=== PATIENT | female | born 1995 ===

== ENCOUNTER 2017-02-26 14:42 | Emergency (ER) | payer OTHER ==
[2017-02-26 14:48] VITALS: BP 155/98; PULSE 101; RESP 16; TEMP 99; O2SAT 100
--- NOTE | 2017-02-26 15:08 | ED PDOC ---
Lower Extremity Pain/Injury Time Seen by Provider: 02/26/17 14:51 Chief Complaint (Nursing): Lower Extremity Problem/Injury Chief Complaint (Provider): Right Knee Pain History Per: Patient History/Exam Limitations: no limitations Onset/Duration Of Symptoms: Days (x1) Current Symptoms Are (Timing): Still Present Additional Complaint(s): Atilio Lang is a 22 year old female that presents to the ED with a chief complaint of right knee pain that she began yesterday. Patient states she was running when she stopped abruptly and felt pain to knee. Patient reports that she has difficulty bending her right knee, and that she used a topical cream in an attempt to manage her pain but this did not help. She rates current pain as 7/10. No oral meds taken for pain relief. Patient denies any numbness or tingling to affected area. PMD: Dr. Magnus Faulkner Past Medical History Reviewed: Historical Data, Nursing Documentation, Vital Signs Vital Signs: Last Vital Signs Temp 99 F 02/26/17 14:45 Pulse 101 H 02/26/17 14:45 Resp 16 02/26/17 14:45 BP 155/98 H 02/26/17 14:45 Pulse Ox 100 02/26/17 14:45 - Medical History PMH: Asthma - Surgical History Surgical History: No Surg Hx - Family History Family History: States: No Known Family Hx - Living Arrangements Living Arrangements: With Family - Social History Current smoker - smoking cessation education provided: No Alcohol: None Drugs: Denies - Home Medications Home Medications: Ambulatory Orders Medication Instructions Recorded Dicyclomine [Bentyl] 20 mg PO BID PRN #30 tab 08/08/16 Ondansetron [Zofran] 4 mg PO Q8H PRN #30 tab 08/08/16 Ibuprofen [Motrin] 600 mg PO Q6 PRN #20 tab 02/26/17 - Allergies Allergies/Adverse Reactions: Allergies Allergy/AdvReac Type Severity Reaction Status Date / Time shrimp Allergy Mild RASH Verified 08/08/16 17:05 Wells Criteria for PE - Wells Criteria for Pulmonary Embolism Clinical Signs and Symptoms of DVT: No P.E is #1 Diagnosis, or Equally Likely: No Heart Rate >100: No Immobilization at least 3 days;Surgery previous 4 weeks: No Previous, objectively diagnosed PE or DVT: No Hemoptysis: No Malignancy w/treatment within 6 months, or palliative: No Total Score: 0 Review of Systems ROS Statement: Except As Marked, All Systems Reviewed And Found Negative Musculoskeletal: Positive for: Leg Pain (right knee pain) Physical Exam - Reviewed Nursing Documentation Reviewed: Yes Vital Signs Reviewed: Yes - Physical Exam Appears: Positive for: Well, Non-toxic, No Acute Distress Skin: Positive for: Normal Color. Negative for: Rash Eye Exam: Positive for: Normal appearance Extremity: Positive for: Swelling (mild swelling to patella region of right leg) . Negative for: Normal ROM (decreased ROM right knee), Calf Tenderness, Deformity Neurologic/Psych: Positive for: Alert, Oriented. Negative for: Motor/Sensory Deficits - Laboratory Results Urine POC: Negative - ECG O2 Sat by Pulse Oximetry: 100 (RA) Pulse Ox Interpretation: Normal - Other Rad Right knee x-ray X-Ray: Interpreted by Me, Viewed By Me X-Ray Interpretation: no fx, no dis Medical Decision Making Medical Decision Making: Impression: Right Knee Pain Plan: * X-Ray Right Knee * Ibuprofen 600 mg PO * Urine * Reevaluation Patient states motrin helped the pain, she is aware of x-ray results, all questions answered. Patient given rx motrin and ortho referral. See procedure note. Crutches given. Scribe Attestation: Documented by Giulia Arredondo, acting as a scribe for Joanne Garcia PA-C. Provider Scribe Attestation: All medical record entries made by the Scribe were at my direction and personally dictated by me. I have reviewed the chart and agree that the record accurately reflects my personal performance of the history, physical exam, medical decision making, and the department course for this patient. I have also personally directed, reviewed, and agree with the discharge instructions and disposition. Procedures - Splinting Location: right knee Pre-Made Type: knee immobilizer Pre-Proc Neuro Vasc Exam: normal Post-Proc Neuro Vasc Exam: normal Disposition - Clinical Impression Clinical Impression: Knee sprain - Patient ED Disposition Is Patient to be Admitted: No Counseled Patient/Family Regarding: Studies Performed, Diagnosis, Need For Followup, Rx Given - Disposition Referrals: Magnus Faulkner DO [Non-Staff] - Janak Hoffman III, MD [Staff Provider] - Disposition: Routine/Home Disposition Time: 16:10 Condition: STABLE Additional Instructions: Ice, rest and elevate affected area. Take rx meds as directed as needed for pain. Follow up with primary care doctor or with orthopedist for any persistent symptoms. Prescriptions: Ibuprofen [Motrin] 600 mg PO Q6 PRN #20 tab PRN Reason: Pain, Moderate (4-7) Instructions: Knee Sprain (ED), Knee Immobilizer (ED), Crutch Instructions (ED) Forms: [email or web address] (Sinhala), [facility] ED School/Work Excuse
--- NOTE | 2017-02-26 16:08 | RAD ---
PROCEDURE: Right Knee Radiographs. HISTORY: trauma COMPARISON: None. FINDINGS: BONES: Normal. No fracture. JOINTS: Normal. No osteoarthritis. JOINT EFFUSION: None. OTHER FINDINGS: None. IMPRESSION: No acute findings related to/accounting for the clinical presentation. Concordant results with the preliminary interpretation rendered by the emergency department physician procedure.
== END 2017-02-26 16:33 | disposition home or self-care (01) ==
LOC: H.ER 14:42
DX: S83.91XA Sprain of unspecified site of right knee, initial encounter (principal); X50.9XXA Other and unspecified overexertion or strenuous movements or postures, initial encounter; Y92.89 Other specified places as the place of occurrence of the external cause

== ENCOUNTER 2018-07-19 05:12 | Observation (INO) | payer MEDICAID, OTHER ==
[2018-07-19 05:30] VITALS: BMI 22.1
[2018-07-19] MEDS ORDERED: Albuterol-Ipratrop 3 mg / 0.5 (3 ml) UD INH STA ×3 (05:30→05:31)
[2018-07-19] MEDS ORDERED: Albuterol-Ipratrop 3 mg / 0.5 (3 ml) UD ONE (05:36)
--- NOTE | 2018-07-19 05:43 | ED PDOC ---
HPI: SOB/CHF/COPD Time Seen by Provider: 07/19/18 05:26 Chief Complaint (Nursing): Shortness Of Breath Chief Complaint (Provider): Shortness of breath History Per: Patient History/Exam Limitations: no limitations Onset/Duration Of Symptoms: Hrs Current Symptoms Are (Timing): Still Present Additional Complaint(s): 23yo female, with history of asthma, comes to ER for acute asthma exacerbation, which was unresolved with albuterol at home. Patient's HPI is limited due to her clinical condition; patient is short of breath and unable to complete full sentences. No fever or recent illnesses and no prior intubations. PMD: Dr. Faulkner Past Medical History Reviewed: Historical Data, Nursing Documentation, Vital Signs Vital Signs: Last Vital Signs Temp 98.0 F 07/19/18 05:37 Pulse 116 H 07/19/18 05:37 Resp 20 07/19/18 05:37 BP 160/86 H 07/19/18 05:37 Pulse Ox 100 07/19/18 05:37 - Medical History PMH: Asthma - Surgical History Surgical History: No Surg Hx - Family History Family History: States: No Known Family Hx, Unknown Family Hx - Home Medications Home Medications: Ambulatory Orders Medication Instructions Recorded Dicyclomine [Bentyl] 20 mg PO BID PRN #30 tab 08/08/16 Ondansetron [Zofran] 4 mg PO Q8H PRN #30 tab 08/08/16 Ibuprofen [Motrin] 600 mg PO Q6 PRN #20 tab 02/26/17 - Allergies Allergies/Adverse Reactions: Allergies Allergy/AdvReac Type Severity Reaction Status Date / Time shrimp Allergy Mild RASH Verified 07/19/18 06:22 Review of Systems ROS Statement: Except As Marked, All Systems Reviewed And Found Negative Constitutional: Negative for: Fever Respiratory: Positive for: Shortness of Breath Physical Exam - Reviewed Nursing Documentation Reviewed: Yes Vital Signs Reviewed: Yes - Physical Exam Appears: Positive for: In Acute Distress (mild respiratory distress) Head Exam: Positive for: ATRAUMATIC, NORMAL INSPECTION, NORMOCEPHALIC Skin: Positive for: Normal Color Eye Exam: Positive for: Normal appearance Neck: Positive for: Normal, Supple Cardiovascular/Chest: Positive for: Tachycardia (regular rhythm) Respiratory: Positive for: Decreased Breath Sounds (decreased air entry bilaterally with minimal air sounds), Respiratory Distress (mild). Negative for: Rales, Rhonchi, Stridor, Wheezing Gastrointestinal/Abdominal: Positive for: Normal Exam, Soft Back: Positive for: Normal Inspection Extremity: Positive for: Normal ROM. Negative for: Pedal Edema, Calf Tenderness Neurologic/Psych: Positive for: Alert, Oriented. Negative for: Motor/Sensory Deficits - Laboratory Results Result Diagrams: 07/19/18 05:35 07/19/18 05:35 - ECG O2 Sat by Pulse Oximetry: 100 (RA) Pulse Ox Interpretation: Normal - Critical Care Total Time (In Min): 30 Documented Critical Care: Time excludes all time spent performint seperately billable procedures Medical Decision Making Medical Decision Making: Impression: Acute asthma exacerbation Plan: -- Duoneb 3ml INH x 3 -- Solumedrol 125mg IVP -- Chest x-ray -- Labs If symptoms do not improve, will give magnesium. Will consider admission if symptoms do not improve. 0629 On reassessment, patient with resolution of wheezing and has good air entry. She remains tachycardic at 143bpm. Will add troponin test, TSH, T3 and T4. IV Fluids, and IV magnesium ordered. 0700 Patient to be signed out to Dr. Bullard pending labs, reassessment. Scribe Attestation: Documented by Casandra Scott, acting as a scribe for Jennifer Nichols MD. Provider Scribe Attestation: All medical record entries made by the Scribe were at my direction and personally dictated by me. I have reviewed the chart and agree that the record accurately reflects my personal performance of the history, physical exam, medical decision making, and the department course for this patient. I have also personally directed, reviewed, and agree with the discharge instructions and disposition. Disposition - Patient ED Disposition Is Patient to be Admitted: Transfer of Care - Disposition Disposition: Transfer of Care Disposition Time: 07:00 Condition: STABLE Forms: [employer] (Filipino) Patient Signed Over To: Jayson Bullard
[2018-07-19 05:46] LABS: BASO # 0.1 K/uL (0.0-0.2); BASO % 0.4 % (0.0-2.0); EOS # 0.1 K/uL (0.0-0.7); EOS % 0.9 % (0.0-4.0); HEMOGLOBIN 12.5 g/dL (12.0-16.0); LYMPH # 2.7 K/uL (1.0-4.3); LYMPH % 19.1 % (20.0-40.0); MEAN CELL VOLUME 78.4 fl (81.0-99.0); MEAN CORPUSCULAR HEMOGLOBIN 25.4 pg (27.0-31.0); MEAN CORPUSCULAR HGB CONC 32.4 g/dL (33.0-37.0); MEAN PLATELET VOLUME 8.6 fl (7.2-11.7); MONO # 0.8 K/uL (0.0-0.8); MONO % 5.8 % (0.0-10.0); NEUT # 10.5 K/uL (1.8-7.0); NEUT % 73.8 % (50.0-75.0); RBC 4.94 Mil/uL (3.80-5.20); RED CELL DISTRIBUTION WIDTH 16.5 % (11.5-14.5); WHITE BLOOD COUNT 14.1 K/uL (4.8-10.8)
[2018-07-19 05:55] LABS: BLOOD UREA NITROGEN 10 mg/dl (7-17); CALCIUM 9.4 mg/dL (8.4-10.2); GFR NON-AFRICAN AMERICAN > 60
[2018-07-19] MEDS ORDERED: Sodium Chloride 0.9% 1,000 ML IV STA ×2 (06:33→09:29)
[2018-07-19] MEDS ORDERED: Magnesium Sulfate 2 gm/50 ml 2 GM/50 ML BAG IVPB ONE (06:34)
[2018-07-19] MEDS ORDERED: Magnesium Sulfate 2 gm/50 ml 2 GM/50 ML BAG ONE (06:40)
--- NOTE | 2018-07-19 07:07 | ED PDOC ---
- Laboratory Results Result Diagrams: 07/19/18 05:35 07/19/18 05:35 - ECG O2 Sat by Pulse Oximetry: 100 (RA) Pulse Ox Interpretation: Normal Medical Decision Making Medical Decision Makin Patient endorsed by Dr. Nichols, pending labs and reassessment. Scribe Attestation: Documented by Meagan Roe, acting as a scribe for Jayson Bullard MD. Persistent tachycardia despite improvement in resp status and adequate hydration. No risk factors for PE but should r/o, pt allergic to shellfish, will place in obs for persistent tachycardia and V/Q scan tomorrow. Discussed with hospitalist Dr. Nogueira. Provider Scribe Attestation: All medical record entries made by the Scribe were at my direction and personally dictated by me. I have reviewed the chart and agree that the record accurately reflects my personal performance of the history, physical exam, medical decision making, and the department course for this patient. I have also personally directed, reviewed, and agree with the discharge instructions and disposition. Disposition - Clinical Impression Clinical Impression: Tachycardia, Asthma - POA Present On Arrival: None - Disposition Disposition: Hospitalized as Observation Patient Disposition Time: 11:07 Condition: STABLE Forms: [employer] [facility] (Romansh)
[2018-07-19 07:29] LABS: TROPONIN I 0.013 ng/mL (0.00-0.120)
[2018-07-19 07:35] LABS: T4 6.63 ug/dl (5.5-11.0)
[2018-07-19 07:48] LABS: T3 1.25 nmol/L (1.49-2.60)
[2018-07-19] MEDS ORDERED: Albuterol-Ipratrop 3 mg / 0.5 (3 ml) UD INH PRN (11:38)
--- NOTE | 2018-07-19 11:48 | CP.PCM.HP ---
<Fernando Caballero - Last Filed: 07/19/18 12:13> History of Present Illness - History of Present Illness History of Present Illness: 23 y/o F with PMHx of asthma presents to ED with shortness of breath and palpitation that started yesterday. As per spouse he was spraying pesticides in the house when the symptoms started. Palpitation started first followed by shortness of breath. Symptoms progressively worsened and round 12-1 am in the morning her SOB worsened so patient decided to come to ED. Patient also reports associated mild headache and sharp midline upper back pain that started along with SOB and radiates to lower midline back. Denies any recent illness or travel. Patient denies any dizziness, watering of eye, runny nose, chest pain, abdominal pain, urinary symptoms, N/V/D/C. Appetite WNL. In ED patient received duoneb treatment which significantly improved dyspnea but palpitation and back pain persists. Asthma is well controlled with albuterol inhaler which she had to use once in past 1 year. PMD: Dr. 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 Present on Admission - Present on Admission Any Indicators Present on Admission: No History of DVT/PE: No History of Uncontrolled Diabetes: No Urinary Catheter: No Decubitus Ulcer Present: No Review of Systems - Review of Systems Systems not reviewed;Unavailable: Unstable Vital Signs, Respiratory Distress - Constitutional Constitutional: absent: Fatigue, Fever - EENT Eyes: absent: Change in Vision Nose/Mouth/Throat: absent: Nasal Congestion, Nasal Discharge - Cardiovascular Cardiovascular: Dyspnea, Palpitations. absent: Chest Pain, Chest Pain at Rest, Chest Pain with Activity, Pedal Edema - Respiratory Respiratory: Dyspnea. absent: Chest Congestion - Gastrointestinal Gastrointestinal: absent: Abdominal Pain, Constipation, Diarrhea, Nausea, Vomiting - Genitourinary Genitourinary: absent: Change in Urinary Stream, Difficulty Urinating, Dysuria - Reproductive: Female Reproductive:Female: Cycle >35 Days, Menses 1-7 Days - Musculoskeletal Musculoskeletal: Back Pain - Neurological Neurological: absent: Behavioral Changes - Psychiatric Psychiatric: absent: Anxiety Past Patient History - Infectious Disease Hx of Infectious Diseases: None - Past Social History Smoking Status: Never Smoked - PULMONARY Hx Asthma: Yes - PSYCHIATRIC Hx Substance Use: No - SURGICAL HISTORY Hx Surgeries: No - ANESTHESIA Hx Anesthesia: No Meds Allergies/Adverse Reactions: Allergies Allergy/AdvReac Type Severity Reaction Status Date / Time shrimp Allergy Mild RASH Verified 07/19/18 06:22 Physical Exam - Constitutional Appears: No Acute Distress - Head Exam Head Exam: ATRAUMATIC, NORMOCEPHALIC - Eye Exam Eye Exam: EOMI, Normal appearance - ENT Exam ENT Exam: Mucous Membranes Moist - Neck Exam Neck exam: Positive for: Full Rom. Negative for: Tenderness - Respiratory Exam Respiratory Exam: Clear to Auscultation Bilateral. absent: Rales, Rhonchi, Wheezes, Respiratory Distress - Cardiovascular Exam Cardiovascular Exam: Tachycardia, +S1, +S2 Additional comments: Sharp midline back pain which radiates to lower back. - GI/Abdominal Exam GI & Abdominal Exam: Normal Bowel Sounds, Soft. absent: Distended, Guarding, Tenderness - Extremities Exam Extremities exam: Negative for: calf tenderness, pedal edema, tenderness - Back Exam Back exam: absent: CVA tenderness (L), CVA tenderness (R) - Neurological Exam Neurological exam: Alert, Altered, Normal Gait, Oriented x3 - Psychiatric Exam Psychiatric exam: Normal Affect, Normal Mood - Skin Skin Exam: Dry, Intact, Normal Color, Warm Results - Vital Signs Recent Vital Signs: Last Vital Signs Temp 98.0 F 07/19/18 05:37 Pulse 116 H 07/19/18 05:37 Resp 20 07/19/18 06:18 BP 143/78 07/19/18 06:08 Pulse Ox 100 07/19/18 11:07 - Labs Result Diagrams: 07/19/18 05:35 07/19/18 05:35 Labs: Laboratory Results - last 24 hr 07/19/18 07/19/18 07/19/18 05:35 05:35 06:35 WBC 14.1 H D RBC 4.94 Hgb 12.5 Hct 38.7 MCV 78.4 L D MCH 25.4 L MCHC 32.4 L RDW 16.5 H Plt Count 325 MPV 8.6 Neut % (Auto) 73.8 Lymph % (Auto) 19.1 L [place] % (Auto) 5.8 Eos % (Auto) 0.9 Baso % (Auto) 0.4 Neut # (Auto) 10.5 H Lymph # (Auto) 2.7 Gaston # (Auto) 0.8 Eos # (Auto) 0.1 Baso # (Auto) 0.1 Sodium 141 Potassium 4.4 Chloride 104 Carbon Dioxide 26 Anion Gap 15 BUN 10 Creatinine 0.5 L Est GFR ( Amer) > 60 Est GFR (Non-Af Amer) > 60 Random Glucose 100 Calcium 9.4 Troponin I 0.0130 Thyroxine (T4) 6.63 Total T3 1.25 L TSH 3rd Generation 2.27 Assessment & Plan - Assessment and Plan (Free Text) Assessment: 23 y/o F with PMHx of asthma admitted for shortness of breath and palpitation x 1 day. Plan: Dyspnea/Acute asthma exacerbation, R/O PE - Admitted to telemetry - S/P Duoneb x 3, Solumedrol 125 mg, Mg Sulf 2 gm and IVF in ED - CXR: Awaiting official reports, No acute infiltrate per my interpretation - EKG: Sinus Tachycardia - Started on Duoneb Q4hr PRN - Solumedrol 40 mg Q12 - F/U V/Q scan, D-Dimer, TSH, ABG Tachycardia - Monitor on tele - F/U TSH, D-Dimer - Monitor vitals DVT prophylaxis - SCDs Diet : Regular <Nogueira,Abel D - Last Filed: 07/19/18 13:52> Results - Vital Signs Recent Vital Signs: Last Vital Signs Temp 98.0 F 07/19/18 05:37 Pulse 120 H 07/19/18 09:26 Resp 16 07/19/18 09:26 BP 141/76 07/19/18 09:26 Pulse Ox 100 07/19/18 11:07 - Labs Result Diagrams: 07/19/18 05:35 07/19/18 05:35 Labs: Laboratory Results - last 24 hr 07/19/18 07/19/18 07/19/18 05:35 05:35 06:35 WBC 14.1 H D RBC 4.94 Hgb 12.5 Hct 38.7 MCV 78.4 L D MCH 25.4 L MCHC 32.4 L RDW 16.5 H Plt Count 325 MPV 8.6 Neut % (Auto) 73.8 Lymph % (Auto) 19.1 L [place] % (Auto) 5.8 Eos % (Auto) 0.9 Baso % (Auto) 0.4 Neut # (Auto) 10.5 H Lymph # (Auto) 2.7 Gaston # (Auto) 0.8 Eos # (Auto) 0.1 Baso # (Auto) 0.1 D-Dimer, Quantitative pCO2 pO2 HCO3 ABG pH ABG Total CO2 ABG O2 Saturation ABG O2 Content ABG Base Excess ABG Hemoglobin ABG Carboxyhemoglobin POC ABG HHb (Measured) ABG Methemoglobin ABG O2 Capacity Demond Test A-a O2 Difference Hgb O2 Saturation FiO2 Sodium 141 Potassium 4.4 Chloride 104 Carbon Dioxide 26 Anion Gap 15 BUN 10 Creatinine 0.5 L Est GFR ( Amer) > 60 Est GFR (Non-Af Amer) > 60 Random Glucose 100 Calcium 9.4 Troponin I 0.0130 Thyroxine (T4) 6.63 Total T3 1.25 L TSH 3rd Generation 2.27 Urine Color Urine Clarity Urine pH Ur Specific [place] Urine Protein Urine Glucose (UA) Urine Ketones Urine Blood Urine Nitrate Urine Bilirubin Urine Urobilinogen Ur Leukocyte Esterase Urine RBC (Auto) Urine Microscopic WBC Ur Squamous Epith Cells Urine Bacteria 07/19/18 07/19/18 07/19/18 11:32 11:49 12:11 WBC RBC Hgb Hct MCV MCH MCHC RDW Plt Count MPV Neut % (Auto) Lymph % (Auto) [place] % (Auto) Eos % (Auto) Baso % (Auto) Neut # (Auto) Lymph # (Auto) [place] # (Auto) Eos # (Auto) Baso # (Auto) D-Dimer, Quantitative < 200 pCO2 34 L pO2 85 HCO3 18.4 L ABG pH 7.31 L ABG Total CO2 18.1 L ABG O2 Saturation 99.7 H ABG O2 Content 16.0 ABG Base Excess -8.3 L ABG Hemoglobin 12.0 ABG Carboxyhemoglobin 2.6 H POC ABG HHb (Measured) 0.3 ABG Methemoglobin 2.6 ABG O2 Capacity 16.0 Demond Test Yes A-a O2 Difference 22.0 Hgb O2 Saturation 94.6 L FiO2 21.0 Sodium Potassium Chloride Carbon Dioxide Anion Gap BUN Creatinine Est GFR ( Amer) Est GFR (Non-Af Amer) Random Glucose Calcium Troponin I Thyroxine (T4) Total T3 TSH 3rd Generation Urine Color Yellow Urine Clarity Cloudy Urine pH 5.0 Ur Specific [place] 1.019 Urine Protein Negative Urine Glucose (UA) Neg Urine Ketones Negative Urine Blood Small Urine Nitrate Negative Urine Bilirubin Negative Urine Urobilinogen 0.2-1.0 Ur Leukocyte Esterase Neg Urine RBC (Auto) 2 Urine Microscopic WBC 2 Ur Squamous Epith Cells 9 H Urine Bacteria Rare Attending/Attestation - Attestation I have personally seen and examined this patient.: Yes I have fully participated in the care of the patient.: Yes I have reviewed all pertinent clinical information: Yes Notes (Text): 07/19/18 13:52 Patient seen and examined with resident. Case discussed and agreed with assessment and plan of management
[2018-07-19 12:17] LABS: ABG ALLEN TEST YES; ARTERIAL BLOOD GAS HCO3 18.4 mmol/L (21-28); ARTERIAL BLOOD GAS O2 SAT 99.7 % (95-98); ARTERIAL BLOOD GAS PCO2 34 mm/Hg (35-45); ARTERIAL BLOOD GAS PH 7.31 (7.35-7.45); ARTERIAL BLOOD GAS PO2 85 mm/Hg (80-100); ARTERIAL BLOOD GAS TCO2 18.1 mmol/L (22-28)
[2018-07-19 12:21] LABS: SQUAMOUS EPITHIAL 9 /hpf (0-5); URINE BACTERIA RARE (<OCC); URINE BILIRUBIN NEGATIVE (NEGATIVE); URINE BLOOD SMALL (NEGATIVE); URINE CLARITY CLOUDY (Clear); URINE COLOR YELLOW (YELLOW); URINE GLUCOSE (UA) NEG (NEGATIVE); URINE LEUKOCYTE ESTERASE NEG Leu/uL (Negative); URINE PROTEIN NEGATIVE (NEGATIVE); URINE UROBILINOGEN 0.2-1.0 mg/dL (0.2-1.0)
--- NOTE | 2018-07-19 13:42 | RAD ---
Date of service: 07/19/2018 HISTORY: possible admission COMPARISON: Comparison chest 04/16/2015 FINDINGS: LUNGS: Mildly low lung volumes with crowded bronchovascular markings and mild bibasilar atelectasis PLEURA: No significant pleural effusion identified, no pneumothorax apparent. CARDIOVASCULAR: No aortic atherosclerotic calcification present. Normal cardiac size. No pulmonary vascular congestion. OSSEOUS STRUCTURES: No significant abnormalities. VISUALIZED UPPER ABDOMEN: Normal. OTHER FINDINGS: None. IMPRESSION: Mildly low lung volumes with crowded bronchovascular markings and mild bibasilar atelectasis
[2018-07-19 16:23] LABS: BARBITURATES, UR NEGATIVE (NEGATIVE); BENZODIAZEPINES, UR NEGATIVE (NEGATIVE); OPIATES, UR NEGATIVE (NEGATIVE); PHENCYCLIDINE, UR NEGATIVE (NEGATIVE)
[2018-07-19] MEDS: MethylPREDNISolone 40 mg Vial IVP SCH (19:05)
[2018-07-19] MEDS ORDERED: methylPREDNISolone 40 MG in Sodium Chloride 0.9% 50 ML IVPB SCH (21:00)
[2018-07-19 21:08] LABS: ABG ALLEN TEST YES; ARTERIAL BLOOD GAS HCO3 20.9 mmol/L (21-28); ARTERIAL BLOOD GAS O2 SAT 86.9 % (95-98); ARTERIAL BLOOD GAS PCO2 32 mm/Hg (35-45); ARTERIAL BLOOD GAS PH 7.39 (7.35-7.45); ARTERIAL BLOOD GAS PO2 47 mm/Hg (80-100); ARTERIAL BLOOD GAS TCO2 20.4 mmol/L (22-28)
[2018-07-20 04:33] VITALS: O2SAT 99
[2018-07-20 05:28] LABS: BASO % 0.1 % (0.0-2.0); HEMOGLOBIN 12.2 g/dL (12.0-16.0); LYMPH # 1.5 K/uL (1.0-4.3); LYMPH % 10.6 % (20.0-40.0); MEAN CELL VOLUME 78.7 fl (81.0-99.0); MEAN CORPUSCULAR HEMOGLOBIN 25.6 pg (27.0-31.0); MEAN CORPUSCULAR HGB CONC 32.5 g/dL (33.0-37.0); MEAN PLATELET VOLUME 8.8 fl (7.2-11.7); MONO # 0.7 K/uL (0.0-0.8); MONO % 4.9 % (0.0-10.0); NEUT # 11.7 K/uL (1.8-7.0); NEUT % 84.4 % (50.0-75.0); NRBC % 0.1 % (0.0-0.0); RBC 4.76 Mil/uL (3.80-5.20); RED CELL DISTRIBUTION WIDTH 16.9 % (11.5-14.5); WHITE BLOOD COUNT 13.9 K/uL (4.8-10.8)
[2018-07-20 05:33] LABS: ABG ALLEN TEST YES; ARTERIAL BLOOD GAS HCO3 22.7 mmol/L (21-28); ARTERIAL BLOOD GAS O2 SAT 99.4 % (95-98); ARTERIAL BLOOD GAS PCO2 33 mm/Hg (35-45); ARTERIAL BLOOD GAS PH 7.41 (7.35-7.45); ARTERIAL BLOOD GAS PO2 165 mm/Hg (80-100); ARTERIAL BLOOD GAS TCO2 21.9 mmol/L (22-28)
[2018-07-20 05:45] LABS: ALB/GLOB RATIO 1.2 (1.0-2.1); ALBUMIN 4.3 g/dL (3.5-5.0); ALT/SGPT 19 U/L (9-52); AST/SGOT 19 U/L (14-36); BLOOD UREA NITROGEN 9 mg/dl (7-17); CALCIUM 9.6 mg/dL (8.4-10.2); GFR NON-AFRICAN AMERICAN > 60
[2018-07-20 07:53] VITALS: RESP 18
[2018-07-20] MEDS ORDERED: Enoxaparin 40 mg Syringe SC SCH (09:00)
[2018-07-20] MEDS: MethylPREDNISolone 40 mg Vial IVP SCH (09:26)
[2018-07-20 12:01] VITALS: BP 122/80; PULSE 68; TEMP 98.5
--- NOTE | 2018-07-20 14:59 | CP.PCM.DIS ---
<Fernando Caballero - Last Filed: 07/20/18 14:59> Provider - Provider Date of Admission: 07/19/18 11:10 Attending physician: Abel Nogueira MD Consults: 07/19/18 15:44 Pulmonology Consult Stat Comment: Consulting Provider: Oniel Grigsby I Consulting Physician: Oniel Grigsby I Reason for Consult: acute exacerbation of asthma, elevated carboxyhgb Time Spent in preparation of Discharge (in minutes): 35 Diagnosis - Discharge Diagnosis (1) Carboxyhemoglobinemia Status: Acute (2) Asthma exacerbation Status: Acute (3) Palpitations Status: Acute (4) Asthma Status: Chronic Hospital Course - Lab Results Lab Results: Most Recent Lab Values WBC 13.9 K/uL (4.8-10.8) H 07/20/18 04:25 RBC 4.76 Mil/uL (3.80-5.20) 07/20/18 04:25 Hgb 12.2 g/dL (12.0-16.0) 07/20/18 04:25 Hct 37.5 % (34.0-47.0) 07/20/18 04:25 MCV 78.7 fl (81.0-99.0) L 07/20/18 04:25 MCH 25.6 pg (27.0-31.0) L 07/20/18 04:25 MCHC 32.5 g/dL (33.0-37.0) L 07/20/18 04:25 RDW 16.9 % (11.5-14.5) H 07/20/18 04:25 Plt Count 335 K/uL (130-400) 07/20/18 04:25 MPV 8.8 fl (7.2-11.7) 07/20/18 04:25 Neut % (Auto) 84.4 % (50.0-75.0) H 07/20/18 04:25 Lymph % (Auto) 10.6 % (20.0-40.0) L 07/20/18 04:25 [place] % (Auto) 4.9 % (0.0-10.0) 07/20/18 04:25 Eos % (Auto) 0.0 % (0.0-4.0) 07/20/18 04:25 Baso % (Auto) 0.1 % (0.0-2.0) 07/20/18 04:25 Neut # (Auto) 11.7 K/uL (1.8-7.0) H 07/20/18 04:25 Lymph # (Auto) 1.5 K/uL (1.0-4.3) 07/20/18 04:25 [place] # (Auto) 0.7 K/uL (0.0-0.8) 07/20/18 04:25 Eos # (Auto) 0.0 K/uL (0.0-0.7) 07/20/18 04:25 Baso # (Auto) 0.0 K/uL (0.0-0.2) 07/20/18 04:25 D-Dimer, Quantitative < 200 ng/mlDDU (0-230) 07/19/18 11:32 pCO2 33 mm/Hg (35-45) L 07/20/18 05:29 pO2 165 mm/Hg (80-100) H 07/20/18 05:29 HCO3 22.7 mmol/L (21-28) 07/20/18 05:29 ABG pH 7.41 (7.35-7.45) 07/20/18 05:29 ABG Total CO2 21.9 mmol/L (22-28) L 07/20/18 05:29 ABG O2 Saturation 99.4 % (95-98) H 07/20/18 05:29 ABG O2 Content 16.0 ML/dL (15-23) 07/19/18 12:11 ABG Base Excess -2.9 mmol/L (-2.0-3.0) L 07/20/18 05:29 ABG Hemoglobin 12.0 g/dL (11.7-17.4) 07/19/18 12:11 ABG Carboxyhemoglobin 2.6 % (0.5-1.5) H 07/19/18 12:11 POC ABG HHb (Measured) 0.3 % (0.0-5.0) 07/19/18 12:11 ABG Methemoglobin 2.6 % (0.0-3.0) 07/19/18 12:11 ABG O2 Capacity 16.0 mL/dL (16-24) 07/19/18 12:11 Demond Test Yes 07/20/18 05:29 ABG Potassium 3.8 mmol/L (3.6-5.2) 07/20/18 05:29 A-a O2 Difference 150.0 mm/Hg 07/20/18 05:29 Hgb O2 Saturation 94.6 % (95.0-98.0) L 07/19/18 12:11 Sodium 136.0 mmol/L (132-148) 07/20/18 05:29 Chloride 109.0 mmol/L (98-107) H 07/20/18 05:29 Glucose 119 mg/dL (65-105) H 07/20/18 05:29 Lactate 2.0 mmol/L (0.7-2.1) 07/20/18 05:29 Vent Mode High flow lpm 07/20/18 05:29 FiO2 50.0 % 07/20/18 05:29 Sodium 141 mmol/l (132-148) 07/20/18 04:25 Potassium 3.9 MMOL/L (3.6-5.0) 07/20/18 04:25 Chloride 110 mmol/L (98-107) H 07/20/18 04:25 Carbon Dioxide 20 mmol/L (22-30) L 07/20/18 04:25 Anion Gap 15 (10-20) 07/20/18 04:25 BUN 9 mg/dl (7-17) 07/20/18 04:25 Creatinine 0.6 mg/dl (0.7-1.2) L 07/20/18 04:25 Est GFR ( Amer) > 60 07/20/18 04:25 Est GFR (Non-Af Amer) > 60 07/20/18 04:25 Random Glucose 124 mg/dL (65-105) H 07/20/18 04:25 Calcium 9.6 mg/dL (8.4-10.2) 07/20/18 04:25 Total Bilirubin 0.3 mg/dl (0.2-1.3) 07/20/18 04:25 AST 19 U/L (14-36) 07/20/18 04:25 ALT 19 U/L (9-52) 07/20/18 04:25 Alkaline Phosphatase 70 U/L (38-126) 07/20/18 04:25 Troponin I 0.0130 ng/mL (0.00-0.120) 07/19/18 06:35 Total Protein 7.8 G/DL (6.3-8.2) 07/20/18 04:25 Albumin 4.3 g/dL (3.5-5.0) 07/20/18 04:25 Globulin 3.5 gm/dL (2.2-3.9) 07/20/18 04:25 Albumin/Globulin Ratio 1.2 (1.0-2.1) 07/20/18 04:25 Thyroxine (T4) 6.63 ug/dl (5.5-11.0) 07/19/18 06:35 Total T3 1.25 nmol/L (1.49-2.60) L 07/19/18 06:35 TSH 3rd Generation 2.27 mIU/ML (0.46-4.68) 07/19/18 06:35 Arterial Blood Potassium 3.8 mmol/L (3.6-5.2) 07/20/18 05:29 Urine Color Yellow (YELLOW) 07/19/18 11:49 Urine Clarity Cloudy (Clear) 07/19/18 11:49 Urine pH 5.0 (5.0-8.0) 07/19/18 11:49 Ur Specific [place] 1.019 (1.003-1.030) 07/19/18 11:49 Urine Protein Negative mg/dL (NEGATIVE) 07/19/18 11:49 Urine Glucose (UA) Neg mg/dL (NEGATIVE) 07/19/18 11:49 Urine Ketones Negative mg/dL (NEGATIVE) 07/19/18 11:49 Urine Blood Small (NEGATIVE) 07/19/18 11:49 Urine Nitrate Negative (NEGATIVE) 07/19/18 11:49 Urine Bilirubin Negative (NEGATIVE) 07/19/18 11:49 Urine Urobilinogen 0.2-1.0 mg/dL (0.2-1.0) 07/19/18 11:49 Ur Leukocyte Esterase Neg Marilyn/uL (Negative) 07/19/18 11:49 Urine RBC (Auto) 2 /hpf (0-3) 07/19/18 11:49 Urine Microscopic WBC 2 /hpf (0-5) 07/19/18 11:49 Ur Squamous Epith Cells 9 /hpf (0-5) H 07/19/18 11:49 Urine Bacteria Rare (<OCC) 07/19/18 11:49 Salicylates < 1.0 mg/dl 07/19/18 15:45 Urine Opiates Screen Negative (NEGATIVE) 07/19/18 15:48 Urine Methadone Screen Negative (NEGATIVE) 07/19/18 15:48 Ur Barbiturates Screen Negative (NEGATIVE) 07/19/18 15:48 Ur Phencyclidine Scrn Negative (NEGATIVE) 07/19/18 15:48 Ur Amphetamines Screen Negative (NEGATIVE) 07/19/18 15:48 U Benzodiazepines Scrn Negative (NEGATIVE) 07/19/18 15:48 U Oth Cocaine Metabols Negative (NEGATIVE) 07/19/18 15:48 U Cannabinoids Screen Negative (NEGATIVE) 07/19/18 15:48 - Hospital Course Hospital Course: 23 year old F with PMHx of asthma well controlled with albuterol inhaler presents to ED complaining of 1 day of dyspnea and palpitation. Patient evaluated in ED. In ED Vitals 98.8 temp, HR 116, BP 160/86, RR 20, EKG: Sinus tachycardia w/ right shift, CXR No acute infiltrates, CBC, CMP WNL, D-Dimer <200, UA, UDS unremarkable, TSH, T3 T4 unremarkable. Dyspnea improved S/P Duoneb in ED. ABG consistent with metabolic acidosis with respiratory compensation. Carboxyhemoglobin was also elevated. The 2 conditions probably caused patient to have palpitation and hyperventilation. Patient put on high flow O2 and called pulmonary consult with Dr. Grigsby. Patient's tachydardia resolved on HF NC. Patient cleared by php software engineer to DC home. Patient hemodynamically stable with normal vitals upon discharge. Patient to follow up with PMD within 3-5 days. Discharge Exam - Head Exam Head Exam: ATRAUMATIC, NORMOCEPHALIC - Eye Exam Eye Exam: EOMI, Normal appearance - ENT Exam ENT Exam: Mucous Membranes Moist - Respiratory Exam Respiratory Exam: Clear to PA & Lateral, UNREMARKABLE. absent: Decreased Breath Sounds, Rales, Rhonchi, Wheezes, Respiratory Distress - Cardiovascular Exam Cardiovascular Exam: REGULAR RHYTHM, +S1, +S2. absent: Systolic Murmur - GI/Abdominal Exam GI & Abdominal Exam: Normal Bowel Sounds, Soft. absent: Distended, Tenderness - Neurological Exam Neurological exam: Alert, Altered, Normal Gait, Oriented x3 - Psychiatric Exam Psychiatric exam: Normal Affect, Normal Mood - Skin Skin Exam: Dry, Intact, Normal Color, Warm Discharge Plan - Discharge Medications Prescriptions: Albuterol HFA [Ventolin HFA 90 mcg/actuation (8 g)] 2 puff IH Q6 PRN #1 inhaler PRN Reason: Wheezing - Follow Up Plan Condition: STABLE Disposition: HOME/ ROUTINE Instructions: Asthma, Adult (DC), Carboxyhemoglobin Blood Test Additional Instructions: Follow up with PMD within 3-5 days <Enid Mendiola - Last Filed: 07/20/18 18:08> Provider - Provider Date of Admission: 07/19/18 11:10 Attending physician: Abel Nogueira MD Consults: 07/19/18 15:44 Pulmonology Consult Stat Comment: Consulting Provider: Oniel Grigsby I Consulting Physician: Oniel Grigsby I Reason for Consult: acute exacerbation of asthma, elevated carboxyhgb Hospital Course - Lab Results Lab Results: Most Recent Lab Values WBC 13.9 K/uL (4.8-10.8) H 07/20/18 04:25 RBC 4.76 Mil/uL (3.80-5.20) 07/20/18 04:25 Hgb 12.2 g/dL (12.0-16.0) 07/20/18 04:25 Hct 37.5 % (34.0-47.0) 07/20/18 04:25 MCV 78.7 fl (81.0-99.0) L 07/20/18 04:25 MCH 25.6 pg (27.0-31.0) L 07/20/18 04:25 MCHC 32.5 g/dL (33.0-37.0) L 07/20/18 04:25 RDW 16.9 % (11.5-14.5) H 07/20/18 04:25 Plt Count 335 K/uL (130-400) 07/20/18 04:25 MPV 8.8 fl (7.2-11.7) 07/20/18 04:25 Neut % (Auto) 84.4 % (50.0-75.0) H 07/20/18 04:25 Lymph % (Auto) 10.6 % (20.0-40.0) L 07/20/18 04:25 [place] % (Auto) 4.9 % (0.0-10.0) 07/20/18 04:25 Eos % (Auto) 0.0 % (0.0-4.0) 07/20/18 04:25 Baso % (Auto) 0.1 % (0.0-2.0) 07/20/18 04:25 Neut # (Auto) 11.7 K/uL (1.8-7.0) H 07/20/18 04:25 Lymph # (Auto) 1.5 K/uL (1.0-4.3) 07/20/18 04:25 [place] # (Auto) 0.7 K/uL (0.0-0.8) 07/20/18 04:25 Eos # (Auto) 0.0 K/uL (0.0-0.7) 07/20/18 04:25 Baso # (Auto) 0.0 K/uL (0.0-0.2) 07/20/18 04:25 D-Dimer, Quantitative < 200 ng/mlDDU (0-230) 07/19/18 11:32 pCO2 33 mm/Hg (35-45) L 07/20/18 05:29 pO2 165 mm/Hg (80-100) H 07/20/18 05:29 HCO3 22.7 mmol/L (21-28) 07/20/18 05:29 ABG pH 7.41 (7.35-7.45) 07/20/18 05:29 ABG Total CO2 21.9 mmol/L (22-28) L 07/20/18 05:29 ABG O2 Saturation 99.4 % (95-98) H 07/20/18 05:29 ABG O2 Content 16.0 ML/dL (15-23) 07/19/18 12:11 ABG Base Excess -2.9 mmol/L (-2.0-3.0) L 07/20/18 05:29 ABG Hemoglobin 12.0 g/dL (11.7-17.4) 07/19/18 12:11 ABG Carboxyhemoglobin 2.6 % (0.5-1.5) H 07/19/18 12:11 POC ABG HHb (Measured) 0.3 % (0.0-5.0) 07/19/18 12:11 ABG Methemoglobin 2.6 % (0.0-3.0) 07/19/18 12:11 ABG O2 Capacity 16.0 mL/dL (16-24) 07/19/18 12:11 Demond Test Yes 07/20/18 05:29 ABG Potassium 3.8 mmol/L (3.6-5.2) 07/20/18 05:29 A-a O2 Difference 150.0 mm/Hg 07/20/18 05:29 Hgb O2 Saturation 94.6 % (95.0-98.0) L 07/19/18 12:11 Sodium 136.0 mmol/L (132-148) 07/20/18 05:29 Chloride 109.0 mmol/L (98-107) H 07/20/18 05:29 Glucose 119 mg/dL (65-105) H 07/20/18 05:29 Lactate 2.0 mmol/L (0.7-2.1) 07/20/18 05:29 Vent Mode High flow lpm 07/20/18 05:29 FiO2 50.0 % 07/20/18 05:29 Sodium 141 mmol/l (132-148) 07/20/18 04:25 Potassium 3.9 MMOL/L (3.6-5.0) 07/20/18 04:25 Chloride 110 mmol/L (98-107) H 07/20/18 04:25 Carbon Dioxide 20 mmol/L (22-30) L 07/20/18 04:25 Anion Gap 15 (10-20) 07/20/18 04:25 BUN 9 mg/dl (7-17) 07/20/18 04:25 Creatinine 0.6 mg/dl (0.7-1.2) L 07/20/18 04:25 Est GFR ( Amer) > 60 07/20/18 04:25 Est GFR (Non-Af Amer) > 60 07/20/18 04:25 Random Glucose 124 mg/dL (65-105) H 07/20/18 04:25 Calcium 9.6 mg/dL (8.4-10.2) 07/20/18 04:25 Total Bilirubin 0.3 mg/dl (0.2-1.3) 07/20/18 04:25 AST 19 U/L (14-36) 07/20/18 04:25 ALT 19 U/L (9-52) 07/20/18 04:25 Alkaline Phosphatase 70 U/L (38-126) 07/20/18 04:25 Troponin I 0.0130 ng/mL (0.00-0.120) 07/19/18 06:35 Total Protein 7.8 G/DL (6.3-8.2) 07/20/18 04:25 Albumin 4.3 g/dL (3.5-5.0) 07/20/18 04:25 Globulin 3.5 gm/dL (2.2-3.9) 07/20/18 04:25 Albumin/Globulin Ratio 1.2 (1.0-2.1) 07/20/18 04:25 Thyroxine (T4) 6.63 ug/dl (5.5-11.0) 07/19/18 06:35 Total T3 1.25 nmol/L (1.49-2.60) L 07/19/18 06:35 TSH 3rd Generation 2.27 mIU/ML (0.46-4.68) 07/19/18 06:35 Arterial Blood Potassium 3.8 mmol/L (3.6-5.2) 07/20/18 05:29 Urine Color Yellow (YELLOW) 07/19/18 11:49 Urine Clarity Cloudy (Clear) 07/19/18 11:49 Urine pH 5.0 (5.0-8.0) 07/19/18 11:49 Ur Specific [place] 1.019 (1.003-1.030) 07/19/18 11:49 Urine Protein Negative mg/dL (NEGATIVE) 07/19/18 11:49 Urine Glucose (UA) Neg mg/dL (NEGATIVE) 07/19/18 11:49 Urine Ketones Negative mg/dL (NEGATIVE) 07/19/18 11:49 Urine Blood Small (NEGATIVE) 07/19/18 11:49 Urine Nitrate Negative (NEGATIVE) 07/19/18 11:49 Urine Bilirubin Negative (NEGATIVE) 07/19/18 11:49 Urine Urobilinogen 0.2-1.0 mg/dL (0.2-1.0) 07/19/18 11:49 Ur Leukocyte Esterase Neg Marilyn/uL (Negative) 07/19/18 11:49 Urine RBC (Auto) 2 /hpf (0-3) 07/19/18 11:49 Urine Microscopic WBC 2 /hpf (0-5) 07/19/18 11:49 Ur Squamous Epith Cells 9 /hpf (0-5) H 07/19/18 11:49 Urine Bacteria Rare (<OCC) 07/19/18 11:49 Salicylates < 1.0 mg/dl 07/19/18 15:45 Urine Opiates Screen Negative (NEGATIVE) 07/19/18 15:48 Urine Methadone Screen Negative (NEGATIVE) 07/19/18 15:48 Ur Barbiturates Screen Negative (NEGATIVE) 07/19/18 15:48 Ur Phencyclidine Scrn Negative (NEGATIVE) 07/19/18 15:48 Ur Amphetamines Screen Negative (NEGATIVE) 07/19/18 15:48 U Benzodiazepines Scrn Negative (NEGATIVE) 07/19/18 15:48 U Oth Cocaine Metabols Negative (NEGATIVE) 07/19/18 15:48 U Cannabinoids Screen Negative (NEGATIVE) 07/19/18 15:48 Attending/Attestation - Attestation I have personally seen and examined this patient.: Yes I have fully participated in the care of the patient.: Yes I have reviewed all pertinent clinical information, including history, physical exam and plan: Yes Notes (Text): Asthma exacerbation, Mild Intermittent Asthma Carboxyhemoglobinemia Sinus Tachycardia/Palpitation prob related to Asthma exacerbation, Medication(Beta agonist), unlikely PE symptoms resolved
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
== END 2018-07-20 14:37 | disposition home or self-care (01) ==
LOC: H.ER 05:12 → H.ERHOLD 11:10 → H.TEL 16:42
DX: T65.91XA Toxic effect of unspecified substance, accidental (unintentional), initial encounter (principal); J45.21 Mild intermittent asthma with (acute) exacerbation; Z83.3 Family history of diabetes mellitus; Z91.013 Allergy to seafood; M54.6 Pain in thoracic spine; R00.0 Tachycardia, unspecified; R00.2 Palpitations; R06.03 Acute respiratory distress; E87.2 Acidosis; J44.9 Chronic obstructive pulmonary disease, unspecified; Y92.009 Unspecified place in unspecified non-institutional (private) residence as the place of occurrence of the external cause
CPT/HCPCS: 36415; 71045; 80048; 80053; 80324; 80329; 80345; 80346; 80349; 80353; 80358; 80361; 81003; 81025; 82803; 83992; 84436; 84443; 84480; 84484; 85025; 85378; 94660; 96374; 99283; G0378; J2920; J2930; J7030